=== PATIENT | male | born 1990 | race Caucasian/White ===

== ENCOUNTER → 2017-01-23 | Outpatient (CLI) | payer OTHER ==
[~2017-01-23] MED LIST: CYCL5TA PO; IBUP600T26 PO; PERC5TAB6 PO
--- NOTE | 2017-01-24 07:33 | REP ---
Clinical: Suprapubic pain. Findings: Lung bases are clear. Visualized heart and pericardium normal. Liver, spleen, pancreas, gallbladder, bilateral adrenal glands and kidneys are normal. The enteric system is without obstruction or acute inflammatory process. Normal terminal ileum and appendix identified in the right lower quadrant. Pelvis demonstrates normal bladder and age appropriate prostate/seminal vesicles. Sigmoid diverticulosis not appreciated. Impression: No acute abdominopelvic process. Signed by Maurice Coker MD 01/24/2017 07:24 A
== END ==
LOC: M RAD 13:34
PROVIDERS: ATTEND Physician Assistant
DX: R10.32 Left lower quadrant pain (principal); G89.29 Other chronic pain

== ENCOUNTER 2017-02-01 10:42 | Emergency (ER) | payer OTHER ==
[~2017-02-01] VITALS: Ht 195.6 cm; Wt 105.2 kg
[2017-02-01] MEDS ORDERED: NEOSPORIN OINT 0.9 GM PKT (FLOOR STOCK) As Ordered ONE (12:32)
[2017-02-01 13:36] LABS: ALBUMIN 4.1 GM/DL (3.2-5.2); ALBUMIN/GLOBULIN RATIO 1.11 (1.00-1.93); ALKALINE PHOSPHATASE 92 U/L (45-117); ALT/SGPT 78 U/L (12-78); ANION GAP 6 MEQ/L (8-16); AST/SGOT 34 U/L (15-37); BILIRUBIN,DIRECT < 0.1 MG/DL (0.0-0.2); BILIRUBIN,TOTAL 0.7 MG/DL (0.2-1.0); BLOOD UREA NITROGEN 19 MG/DL (7-18); CALCIUM LEVEL 8.6 MG/DL (8.5-10.1); CARBON DIOXIDE LEVEL 28 MEQ/L (21-32); CHLORIDE LEVEL 104 MEQ/L (98-107); CREATININE FOR GFR 1.02 MG/DL (0.70-1.30); GLOMERULAR FILTRATION RATE > 60.0 (>60); GLUCOSE, FASTING 95 MG/DL (70-105); POTASSIUM SERUM 3.9 MEQ/L (3.5-5.1); SODIUM LEVEL 138 MEQ/L (136-145); TOTAL PROTEIN 7.8 GM/DL (6.4-8.2)
[2017-02-01] MEDS ORDERED: ISOVUE-370 76% 100ML VIAL (Q9967) As Ordered ONE (13:47)
--- NOTE | 2017-02-01 14:34 | REP ---
Or [facility] CT abdomen and pelvis with IV contrast, without bowel contrast: Comparison is a CT abdomen pelvis dated 01/23 2017. The visualized lung mendez are unremarkable. The hepatic parenchyma, gallbladder, pancreas and spleen are homogeneous and unremarkable. The adrenals are unremarkable. The kidneys and abdominal aorta are unremarkable. There is no bowel distension. The mesentery is unremarkable. Pelvis: The appendix has a normal appearance. The bladder is unremarkable. There is no ascites or adenopathy. The pelvic bowel loops are unremarkable. There is no lumbar, sacral, iliac, pubic symphysis, if she will or hip fracture. There are no masses in the right inguinal area. There is a small calcification posterior to the distal right spermatic cord, likely a phlebolith. There is a low density mass like structure distally in the left spermatic cord, possibly a left hydrocele. Impression: Essentially negative CT of the abdomen pelvis except for questionable left hydrocele. Right inguinal area is unremarkable, except for a phlebolith. Signed by Pierre Kearney MD 02/01/2017 02:25 P
[2017-02-01] MEDS ORDERED: PERC5TAB6 PO ×2 (14:45→14:52)
[2017-02-01] MEDS ORDERED: IBUP600T26 PO ×2 (14:45→14:53)
[2017-02-01] MEDS ORDERED: fentaNYL 100 MCG/2 ML INJECTION (J3010) IV ONE (14:45)
[2017-02-01] MEDS ORDERED: KETOROLAC 30 MG/ML VIAL (J1885) IV ONE (14:45)
[2017-02-01] MEDS ORDERED: CYCL5TA PO ×2 (14:46→14:54)
[2017-02-01 15:15] VITALS: BP 141/63
== END 2017-02-01 15:18 | disposition home or self-care (01) ==
LOC: EDBD 10:42 → M ED 11:14
DX: Z04.1 Encounter for examination and observation following transport accident (principal); V13.4XXA Pedal cycle driver injured in collision with car, pick-up truck or van in traffic accident, initial encounter; Y92.410 Unspecified street and highway as the place of occurrence of the external cause; Y93.55 Activity, bike riding; Y99.8 Other external cause status; R10.30 Lower abdominal pain, unspecified
CPT/HCPCS: 36415; 74177; 80048; 80076; 96374; 96375; 99284; J1885; J3010; Q9967